=== PATIENT | male | born 1985 | race Caucasian/White ===

== ENCOUNTER 2020-11-12 12:36 | Emergency (ER) | payer OTHER, SELFPAY ==
[2020-11-12] VITALS (8 sets, daily range): BP systolic 100–159; BP diastolic 81–92; PULSE 99–117; RESP 18–26; TEMP 36.4; O2SAT 99–100
--- NOTE | ~2020-11-12 | XR_ITS ---
EXAMINATION: XR chest 1V portable 11/12/2020 14:53 INDICATION: Chest pain PROCEDURE: AP portable chest COMPARISON: No prior studies for comparison. FINDINGS: The lungs are clear. The cardiomediastinal silhouette is within normal limits. There are no pleural effusions. There is no pneumothorax suspected. IMPRESSION: 1: NO ACUTE CARDIOPULMONARY DISEASE. Reviewed, dictated and finalized at location A.
--- NOTE | 2020-11-12 12:56 | ECG_ITS ---
Measurements Intervals [place] Rate: 99 P: 78 DC: 167 QRS: 74 QRSD: 104 T: 79 QT: 356 QTc: 458 Interpretive Statements SINUS RHYTHM INCOMPLETE RIGHT BUNDLE BRANCH BLOCK VOLTAGE CRITERIA FOR LVH BORDERLINE T WAVE ABNORMALITY- HIGH LATERAL LEADS BASELINE WANDER- I, II, III, AVR, AVL, AVF, V1-V3 BORDERLINE ECG Electronically Signed On 11-12-2020 15:07:51 CDT by Fam Blackwood D.O.
--- NOTE | 2020-11-12 12:58 | ED.CHESTPAIN ---
HPI - Chest Pain General Chief Complaint: Chest Pain Stated Complaint: DOG BITE/METH INGESTION Time Seen by Provider: 11/12/20 12:42 Source: patient Mode of arrival: ambulatory Limitations: no limitations History of Present Illness HPI narrative: Patient is a 35-year-old male complaining of chest pain, tightness, 10 out of 10, nonradiating, that started prior to arrival. Patient states that he ingested approximately 4 g of meth while being chased by the police, and when the police caught up to him he was bitten by the police dog on the left leg, and started to have chest pain afterwards. Patient denies any shortness of breath, abdominal pain, nausea, vomiting, diaphoresis, fever or chills Related Data Home Medications Medication Instructions Recorded Confirmed No Home Medications 11/12/20 11/12/20 Allergies Allergy/AdvReac Type Severity Reaction Status Date / Time No Known Allergies Allergy Verified 11/12/20 12:58 Review of Systems Review of Systems: All systems reviewed & are unremarkable except as noted in HPI and below Constitutional: Constitutional: Denies body ache(s), Denies chills, Denies excessive sweating, Denies fatigue, Denies fever(s), Denies headache(s), Denies lethargy, Denies malaise, Denies weakness and Denies weight loss Eyes: Eyes: Denies blurry vision, Denies change in vision and Denies loss of vision ENT: Denies dizziness, Denies ear discharge, Denies headache(s), Denies lip swelling, Denies epistaxis, Denies nasal congestion, Denies neck pain, Denies throat swelling and Denies tongue swelling Cardiovascular: Cardiovascular: Denies diaphoresis, Denies edema, Denies irregular heart rhythm, Denies lightheadedness, Denies palpitations, Denies dyspnea and Denies dyspnea on exertion Respiratory: Respiratory: Denies chest congestion, Denies cough, Denies hemoptysis, Denies dyspnea and Denies dyspnea on exertion Gastrointestinal: Gastrointestinal: Denies abdominal pain, Denies melena, Denies hematochezia, Denies diarrhea, Denies nausea, Denies vomiting and Denies hematemesis Musculoskeletal: Musculoskeletal: Denies abnormal gait, Denies deformity, Denies joint swelling, Denies limited range of motion, Denies neck pain and Denies numbness Neurologic: Denies Abnormal speech present, Denies abnormal gait, Denies confusion, Denies dizziness, Denies headache(s), Denies focal weakness, Denies loss of vision, Denies numbness, Denies Other visual disturbances, Denies Sensory deficit (Neuro) and Denies weakness Psychiatric: Psychiatric: Denies confusion, Denies depression, Denies auditory hallucinations, Denies homicidal ideation and Denies suicidal ideation Endocrine: Endocrine: Denies cold intolerance, Denies excessive sweating, Denies fatigue, Denies heat intolerance and Denies palpitations Hematologic/Lymphatic: Hematologic/Lymphatic: Denies easy bleeding and Denies easy bruising Allergic/Immunologic: Allergic/Immunologic: Denies lip swelling, Denies throat swelling and Denies tongue swelling PMFSH Social History Social History Gender identity (if verbalized by the patient): Male Comments Past medical history: Crohn's Family history: Negative for coronary disease or [place] Social history: Positive for smoker, occasional EtOH use, methamphetamine use Exam Const: General: cooperative, healthy appearing, comfortable, no acute distress, well developed, alert and awake; No confusion Orientation/consciousness: oriented to person, oriented to place, oriented to time, patient oriented x3 and No confusion Limitations: no limitations HENMT: Head: normal to inspection, normocephalic and atraumatic Ears: hearing grossly normal bilaterally, TM normal on the right and TM normal on the left General nose exam: Normal external nose present, Normal nares present and No nasal discharge present Face and sinus: normal facial exam Mouth: Yes Normal oral and palatal mucosa present, Yes lip normal, Yes tongue normal and Yes orop
[2020-11-12] MEDS: SODIUM CHLORIDE 0.9% IV 1,000 ML 999 ML IV CONT (13:06)
[2020-11-12] MEDS: LORazepam INJ (*CRX) 2 MG/ML VIAL 1 MG IV PUSH (13:06)
[2020-11-12 13:44] LABS: Basophils Percent Auto 0.3 % (0.2-1.2); Eosinophils Percent Auto 0.2 % (0-4.4); Hematocrit 41.3 % (42.0-52.0); Hemoglobin 14.4 g/dL (14.0-18.0); Immature Granulocyte Absolute 0.04 K/mm3 (0.00-0.031); Immature Granulocyte Percent A 0.4 % (0-0.5); Lymphocytes Absolute Auto 0.86 K/mm3 (0.9-3.2); Lymphocytes Percent Auto 8.6 % (18.3-44.2); Mean Corpuscular HGB Conc 34.9 g/dl (32-36); Mean Corpuscular Hemoglobin 29.3 pg (26-34); Mean Corpuscular Volume 84.1 fl (80-100); Mean Platelet Volume 8.7 fl (7.4-10.4); Monocytes Absolute Auto 0.4 K/mm3 (0.1-0.6); Monocytes Percent Auto 3.6 % (2.6-8.5); Neutrophils Absolute Auto 8.7 K/mm3 (1.3-6.7); Neutrophils Percent Auto 86.9 % (45.5-73.1); Platelet Count Result 268 k/mm3 (150-375); Red Blood Count 4.91 M/mm3 (4.6-6.20); Red Cell Distribution Width 12.7 % (11.5-14.5)
[2020-11-12 13:55] LABS: Anion Gap 7 mmol/L (8-16); Blood Urea Nitrogen 13 mg/dL (9-20); Calcium 9.1 mg/dL (8.4-10.2); Carbon Dioxide 28 mmol/L (22-30); Chloride 105 mmol/L (98-107); Creatine Kinase 392 U/L (55-170); Estimated CRCL calculation 77 ml/min; Estimated Glomerular Filt Rate > 60; Glucose 76 mg/dL (75-110); Potassium 3.7 mmol/L (3.4-5.0); Sodium 140 mmol/L (137-145)
[2020-11-12 14:06] LABS: Troponin I < 0.012 ng/mL (0.000-0.034)
[2020-11-12 16:24] LABS: Troponin I < 0.012 ng/mL (0.000-0.034)
== END 2020-11-12 17:02 ==
PROVIDERS: Emergency Provider Emergency Medicine
DX: R07.89 Other chest pain (principal); F15.10 Other stimulant abuse, uncomplicated; K50.90 Crohn's disease, unspecified, without complications; F17.200 Nicotine dependence, unspecified, uncomplicated; I45.10 Unspecified right bundle-branch block; R94.31 Abnormal electrocardiogram [ECG] [EKG]
CPT/HCPCS: 36415; 71045; 80048; 82550; 84484; 85025; 93005; 96361; 96374; 99284; J2060; J7030

== ENCOUNTER 2022-11-02 09:37 | Emergency (ER) | payer OTHER, SELFPAY ==
[2022-11-02 09:41] VITALS: BP 186/85; PULSE 100; RESP 18; TEMP 37.1; O2SAT 99
--- NOTE | 2022-11-02 11:11 | ED.WOUNDLAC ---
HPI - Wound/Laceration General Chief Complaint: Wound/Laceration Stated Complaint: abcess to buttocks Time Seen by Provider: 11/02/22 11:00 History of Present Illness HPI narrative: Patient is a 37-year-old male here for evaluation of continued redness, drainage and swelling to an abscess on his right buttock. Patient states that this came up about 3 days ago and has been very painful. He went to an urgent care yesterday and had the area drained which provided him some transient relief but the pain, redness and swelling came back today. It is draining green drainage. No fevers, chills, nausea, vomiting. No history of immunocompromise. He has been taking his Bactrim, ibuprofen without relief. Related Data Home Medications Medication Instructions Recorded Confirmed No Home Medications 11/12/20 11/12/20 Allergies Allergy/AdvReac Type Severity Reaction Status Date / Time No Known Allergies Allergy Verified 11/12/20 12:58 Review of Systems Review of Systems: Gen.: Denies fevers or chills Eyes: Denies eye pain or visual change ENT: Denies congestion Respiratory: Denies shortness of breath or cough CV: Denies chest pain or palpitations GI: Denies abdominal pain nausea, emesis or diarrhea denies burning, urgency, frequency or hematuria Musculoskeletal: Denies back pain or muscle pain Neuro: Denies numbness, tingling, weakness or focal weakness Skin: Reports abscess Except as documented, all other systems reviewed and negative [facility] Social History Social History Gender identity (if verbalized by the patient): Male Exam Narrative: Gen: Alert, oriented, no acute distress Eyes: EOMI, no icterus Pulm: Respirations even and unlabored, symmetric thorax expansion, no audible stridor or visible cyanosis CV: Regular rate per telemetry GI: No distension, no voluntary/involuntary guarding Neuro: AOx4, moves all extremities without apparent difficulty or weakness, follows commands Skin: There is a 2 x 3 cm area of induration, fluctuance and erythema to the right buttock with white thick drainage expressed Psych: Normal mood/affect, insight/judgement good, adequate fund of knowledge, recent/remote memory intact Course Vital Signs Vital signs: Vital Signs Temperature 98.7 F 11/02/22 09:41 Pulse Rate 100 11/02/22 09:41 Respiratory Rate 18 11/02/22 09:41 Blood Pressure 186/85 H 11/02/22 09:41 Pulse Oximetry 99 11/02/22 09:41 Oxygen Delivery Room Air 11/02/22 09:41 Temperature 98.7 F 11/02/22 09:41 Pulse Rate 100 11/02/22 09:41 Respiratory Rate 18 11/02/22 09:41 Blood Pressure 186/85 H 11/02/22 09:41 Pulse Oximetry 99 11/02/22 09:41 Oxygen Delivery Room Air 11/02/22 09:41 Procedures Abscess I/D other: Date of Incision: 11/02/22 Time of Incision: 11:00 Side (if applicable): right (buttock) Local Anesthetic: lidocaine 1% Amount of anesthesia used (mL): 2 Technique: incised with #11 blade and probed loculations Amount of fluid expressed (mL): 3 Irrigation: Yes Packing used?: none I&D Results: Pus and Blood MDM - Wound/Laceration MDM Narrative Medical decision making narrative: 37-year-old male here for evaluation of continued redness and drainage from his abscess on his buttock that was drained yesterday at urgent care. The abscess was opened again and had more drainage of pus. Patient feeling improved afterwards. We will give general surgery follow-up in case there is recurrence. No systemic symptoms, fevers, abdominal pain or stool changes. Will discharge home to continue his antibiotics. Discharge Plan Discharge Clinical Impression: Abscess Patient Disposition: Home, Self-Care Condition: Stable Instructions: Antibiotic Form, Abscess (ED) Additional Instructions: You had more material that needed to come out of your abscess today. Continue your antibiotics as directed. Alt
[2022-11-02] MEDS: ACETAMINOPHEN 325 MG TABLET 650 MG PO (11:28)
[2022-11-02] MEDS: IBUPROFEN 600 MG TABLET PO (11:29)
[2022-11-02] MEDS: LIDOCAINE/PRILOCAINE CREAM 2.5-2.5% TUBE 1 EACH TOPICAL (11:29)
[2022-11-02] MEDS: LIDOCAINE HCL 1% LOCAL INJ 10 ML VIAL 5 ML INFILTRATE (12:14)
== END 2022-11-02 12:54 | disposition home or self-care (01) ==
PROVIDERS: Emergency Provider Physician Assistant
DX: L02.31 Cutaneous abscess of buttock (principal)
CPT/HCPCS: 10060; 99282; A9270

== ENCOUNTER 2022-11-02 14:49 | Emergency (ER) | payer OTHER, SELFPAY ==
[2022-11-02 14:52] VITALS: BP 174/81; PULSE 85; RESP 16; TEMP 36.6; O2SAT 99
--- NOTE | 2022-11-02 16:07 | ED.GENADULT ---
HPI - General Adult General Chief complaint: Wound/Laceration Stated complaint: abcess drained today, now having pain Time Seen by Provider: 11/02/22 16:02 Source: patient Mode of arrival: ambulatory Limitations: no limitations History of Present Illness HPI narrative: 37-year-old with right gluteal abscess was drained earlier this morning here with complaints of pain to exclude and also radiating into his leg. He was worried that he has blood infection. He states that he went home okay while he was climbing the stairs he had a pain in his thigh. He is presently feeling little better. Onset (ago): hour(s) (1) Location: right (thigh) Severity: mild Pain Consistency: now resolved Relieving factors: none Exacerbating factors: none Associated symptoms: denies other symptoms Related Data Home Medications Medication Instructions Recorded Confirmed No Home Medications 11/12/20 11/12/20 Allergies Allergy/AdvReac Type Severity Reaction Status Date / Time No Known Allergies Allergy Verified 11/12/20 12:58 Review of Systems Review of Systems: All systems reviewed & are unremarkable except as noted in HPI and below Constitutional: Constitutional: Reports no additional constitutional complaints Eyes: Eyes: Reports no additional eye complaints ENT: Reports system reviewed and no additional complaints, except as documented Cardiovascular: Cardiovascular: Reports no additional cardiovascular complaints Respiratory: Respiratory: Reports no additional respiratory complaints Gastrointestinal: Gastrointestinal: Reports no additional gastrointestinal complaints Musculoskeletal: Musculoskeletal: Reports as per HPI Integumentary/Breasts: Skin/Breast: Reports system reviewed and no additional complaints, except as docu PMFSH Social History Social History Gender identity (if verbalized by the patient): Male Exam Narrative: GENERAL: Well-appearing, well-nourished, and in no acute distress. HEAD: Normocephalic, atraumatic. EYES: PERRLA and EOMI.. NECK: Supple. CHEST: Clear to auscultation. No respiratory distress. HEART: Regular rate and rhythm. No murmur heard. Normal peripheral pulses. EXTREMITIES: Normal range of motion. No edema. Examination of the right gluteus shows dressing in place no active bleeding SKIN: Warm, dry, no rash. NEURO: No focal deficits. Alert and oriented x3. PSYCH: Normal mood and affect. Course Course Emergency Course: Notified patient that could be just a muscle spasm no blood work is indicated at however I did offer him and he declined advised him to continue his home antibiotic and pain medication. Vital Signs Vital signs: Vital Signs Temperature 36.6 C 11/02/22 14:52 Pulse Rate 85 11/02/22 14:52 Respiratory Rate 16 11/02/22 14:52 Blood Pressure 174/81 H 11/02/22 14:52 Pulse Oximetry 99 11/02/22 14:52 Oxygen Delivery Room Air 11/02/22 14:52 Temperature 36.6 C 11/02/22 14:52 Pulse Rate 85 11/02/22 14:52 Respiratory Rate 16 11/02/22 14:52 Blood Pressure 174/81 H 11/02/22 14:52 Pulse Oximetry 99 11/02/22 14:52 Oxygen Delivery Room Air 11/02/22 14:52 Medical Decision Making Vital Signs Vital Signs: Vital Signs Temperature 36.6 C 11/02/22 14:52 Pulse Rate 85 11/02/22 14:52 Respiratory Rate 16 11/02/22 14:52 Blood Pressure 174/81 H 11/02/22 14:52 Pulse Oximetry 99 11/02/22 14:52 Oxygen Delivery Room Air 11/02/22 14:52 Temperature 36.6 C 11/02/22 14:52 Pulse Rate 85 11/02/22 14:52 Respiratory Rate 16 11/02/22 14:52 Blood Pressure 174/81 H 11/02/22 14:52 Pulse Oximetry 99 11/02/22 14:52 Oxygen Delivery Room Air 11/02/22 14:52 Discharge Plan Discharge Clinical Impression: Leg muscle spasm Qualifiers: Laterality: right Qualified Code(s): M62.838 - Other muscle spasm Patient Disposition: Home, Self-Care Condition: Stable Instructions: Muscle Spasm (ED) Addit
== END 2022-11-02 16:21 | disposition home or self-care (01) ==
PROVIDERS: Emergency Provider Family Medicine
DX: M62.838 Other muscle spasm (principal)
CPT/HCPCS: 99281

== ENCOUNTER 2023-09-27 12:43 | Outpatient (CLI) | payer OTHER, SELFPAY ==
[2023-09-27 14:41] LABS: Influenza A QL RT-PCR Negative (Negative); Influenza B QL RT-PCR Negative (Negative); SARS-CoV-2 RNA PCR Negative (Negative)
== END 2023-09-27 12:44 | disposition home or self-care (01) ==
LOC: ANHLAB 12:46
PROVIDERS: Visit Provider Internal Medicine
DX: J06.9 Acute upper respiratory infection, unspecified (principal); Z20.822 Contact with and (suspected) exposure to COVID-19
CPT/HCPCS: 87502; 87635